=== PATIENT | male | born 2000 | race Caucasian/White ===

== ENCOUNTER 2024-08-02 16:40 | Emergency (ER) | payer OTHER, SELFPAY ==
[2024-08-02 16:53] VITALS: BP 142/97
[2024-08-02 17:31] LABS: % Basophils 0.2 % (0-2); % Eosinophils 0.5 % (0-6); % Lymphocytes 28.5 % (20.5-51.1); % Monocytes 7.8 % (1.7-9.3); Absolute Lymphocytes 1.2 10^3/uL (1.2-3.4); Absolute Monocytes 0.3 10^3/uL (0.1-0.6); Absolute Neutrophils 2.7 10^3/uL (1.4-6.5); Hematocrit 43.9 % (39.0-52.0); Hemoglobin 16.3 g/dL (13.0-18.0); Mean Corp Hgb Conc. 37.1 g/dL (33.0-37.0); Mean Corpuscular Hgb 31.7 pg (27.0-31.0); Mean Corpuscular Volume 85.2 fL (80.0-94.0); Mean Platelet Volume 9.4 fL (7.4-10.4); Nucleated Red Blood Cells % 0 % (-); Platelet Count 323 10^3/uL (130-400); Red Blood Cell Count 5.15 10^6/uL (4.70-6.10); Red Cell Dist. Width 11.5 % (11.5-14.5); White Blood Cell Count 4.4 10^3/uL (4.8-10.8)
[2024-08-02 17:46] LABS: ALT (SGPT) 28 U/L (0-50); AST (SGOT) 25 U/L (17-59); Albumin 5.2 g/dl (3.5-5.0); Alkaline Phosphatase 51 U/L (38-126); Blood Urea Nitrogen 14 mg/dl (9-20); Calcium 9.8 mg/dl (8.4-10.2); Carbon Dioxide 24 mmol/L (22-30); Chloride 102 mmol/L (98-107); Glucose 104 mg/dl (70-99); Sodium 138 mmol/L (135-145); Total Protein 7.9 g/dl (6.3-8.2); eGFR > 60.00
[2024-08-02 17:57] LABS: Troponin I < 0.012 ng/ml
[2024-08-02 21:10] VITALS: BP 138/86
--- NOTE | 2024-08-02 21:37 | ED.GENMED ---
History of Present Illness
General
Chief Complaint: Cardiac Symptoms
Source: patient
Exam Limitations: none
Time Seen by Provider: 08/02/24 20:04
Nursing documentation reviewed up to this point in time: agreed with
History of Present Illness
History of Present Illness:
pt i a 23 y/o M
may have h/o heart murmur but doesn't see specialist
said he got out of the shower around 4 pm and about 10 min later he suddenly felt lightheaded and then ot chest pressure, and jaw pain and R arm and R leg numbness
he came to the ER about 30 minuts later with symptoms still present and gradually the jaw/arm symptom resolved soon after EKG and then the chest pressure resolved within an hour
pt has not had recurrence of symptoms
he has had a little cold, runny nose
vapes marijuana and occ nicotine
uses marijuana in other forms
didn't use jus before this
he did increase his cymbalta from 20 to 40 mg this moring a few hours before this started
he was started on cymbalta 1 mo ago at 20 mg
he just had his dose increased forom the provider yesterday and picked up his prescription to start today
he does take it for stress and anxiety and depression
he doens't htink hew as particularly stressed when this episode hoappend
no fhx of premature CAD
no fever, chills, cough, vomiting, wakness, syncope, abdominal pain, headache, vision change
no cocaine
pt
Past History
Past History
ED Past Medical History: Psychiatric
ED Past Surgical History: None
Social History
Tobacco: Vaping
Alcohol: Occasional
Drug: None and Marijuana
Personal: Single
Living: with family
Review of Systems
Review of Systems
Allergies reviewed?: Yes
All Other Systems: Not applicable
Phy Exam
Physical Exam
Physical Exam:
GENERAL: Alert , in no apparent distress, calm comfortable
EYE: pupils equal and reactive
NECK: Supple
ENT: o/p clr, mmm.
CARDIAC: Regular rate and rhythm .no murmur aprpecaited;
LUNGS: Clear breath sounds bilaterally, no acute respiratory distress, no wheezes/rales/rhonchi
ABDOMEN: Soft, without focal tenderness, no r/g, no cvat, normal bowel sounds
NEUROLOGICAL: Alert and oriented, no focal neuro deficits, 5/5 strength, intact sensation
SKIN: Warm and dry, skin intact.
MUSCULOSKELETAL: No edema, well perfused. neg kelly's sign
PSYCH: Normal and appropriate interaction.
Course
Orders/Labs/Results
Orders:
Orders
08/02/24 16:42
Electrocardiogram (*1) Urgent
Reason for Study: Chest Pain
EKG- Treatment ONCE
08/02/24 17:19
Complete Blood Count/With Diff Urgent
Comprehensive Metabolic Panel Urgent
Troponin I Urgent
08/02/24 20:54
CR Chest - 2 Views Urgent
Comment:
Reason For Exam: chest pain
08/02/24 21:06
Troponin I Urgent
Abnormal Lab Results
08/02/24
17:19
WBC 4.4 L 10^3/uL
(4.8-10.8)
MCH 31.7 H pg
(27.0-31.0)
MCHC 37.1 H g/dL
(33.0-37.0)
Glucose 104 H mg/dl
(70-99)
Albumin 5.2 H g/dl
(3.5-5.0)
08/02/24 17:19
08/02/24 17:19
Vital Signs
Initial and Last Documented VS:
Initial Vital Signs
Temp Pulse Resp BP Pulse Ox
36.7 C 88 20 142/97 99
08/02/24 16:53 08/02/24 16:53 08/02/24 16:53 08/02/24 16:53 08/02/24 16:53
Last Documented Vital Signs
Temp Pulse Resp BP Pulse Ox
37.1 C 75 20 138/86 98
08/02/24 21:10 08/02/24 21:10 08/02/24 21:10 08/02/24 21:10 08/02/24 21:10
MDM/Problems Addressed
Differential Diagnosis Includes:
myocarditis, pericarditis, acs, msk chest pain, anxiety, medication side effect
MDM/Problems Addressed:
23 y/o M
previus heart murmur
sudden lightheaded/felt like he might pass ut after he got out of the shower and then had ches tpressure and neck pain/arm and leg numbness on he R side
pressure was moderate and not through to bakc
pt never passed out
didn't feel SOB
no pleuritic pain
recently upped dose of new cymbalta
uess marijauan
no cocaine
no fhx of premature CAD
well appearing
symptoms resolved
vitals stable
ekg sinus rhythm with sinus arrhythmia
no sichemic changes
perc neg
1st top neg
labs appreciated, essentially normal
wbc 4.4, recent URI could be cause
cxr indep reviewed by me and neg
narrow mediatsinum
likely near syncope/vasovagal and got anxious
another opion was side effect from cymbalta
w/samuel here reassuring
2nd trop neg
dc home
*Critical Care Note
Total Time (30-74mins, 75-104mins- exclusive of procedures): Not Applicable
ED Attending Note
-
Portions of this chart may have been created with voice recognition software.� Occasional wrong word or��sound alike� substitutions may have occurred due to the inherent limitations of voice recognition software.
Discharge Plan
Departure
Patient Disposition: Home (Routine Discharge)
Date of Disposition: 08/02/24
Time of Disposition: 21:48
Patient with high blood pressure during this ER visit?: No
Condition: Fair
Discharge Problem:
Chest pressure, Near syncope
Instructions: Near Fainting (DC), Chest Pain PCP Follow Up
Prescriptions:
No Action
No Current Medications
0
Referrals:
Kleber Logan CRNP [Family Provider] - Follow up in 2-3 days
Activity Restrictions/Additional Instructions:
WE ARE NOT SURE THE CAUSE OF YOUR CHEST PAIN
YOUR WORK UP HERE IS REASSURING THIS IS NOT A CARDIAC EMERGENCY
MAKE SURE TO EAT WELL, STAY HYDRATED
THERE IS A VERY SMALL POSSIBILITY THIS WAS SIDE EFFECT FORM INCREASING THE CYMBALTA SO IF IT KEEPS HAPPENING TALK WITH YOUR DOCTOR
BUT MORE LIKELY YOU FELT SOME SYMPTOMS FROM ALMOST PASSING OUT
RETURN FOR: PASSING OUT, SEVERE PAIN, SHORTNESS OF BREATH, FEVER OR ANY CONCERNS.
Interventions
Interventions:
*Risk Screen - Suicide Last Done: 08/02/24 21:14
*General Assessment Last Done: 08/02/24 16:53
*Neglect/Abuse Screening Last Done: 08/02/24 21:14
*ED COVID-19 Vaccine History Last Done: 08/02/24 21:14
*Nursing Disposition Last Done: 08/02/24 22:24
ED- Pulmonary Assessment Last Done: 08/02/24 21:14
ED- Cardiac Assessment Last Done: 08/02/24 21:14
Discharge Date and Time
Discharge Date/Time: 08/02/24 22:25
Print Language: MONTSERRATIAN
[2024-08-02 21:40] LABS: Troponin I < 0.012 ng/ml
== END 2024-08-02 22:25 | disposition home or self-care (01) ==
LOC: EMR 16:40
PROVIDERS: Physician Assistant; EMERGENCY PHYSICIAN Emergency Medicine; FAMILY PHYSICIAN Nurse Practitioner Family
DX: R07.89 Other chest pain (principal); R55 Syncope and collapse; F17.290 Nicotine dependence, other tobacco product, uncomplicated; F12.90 Cannabis use, unspecified, uncomplicated
CPT/HCPCS: 99285; 71046; 80053; 84484; 85025; 93005